=== PATIENT | male | born 1960 | race Hispanic/Latino ===

== ENCOUNTER 2019-08-04 11:55 | Outpatient (CLI) | payer OTHER ==
--- NOTE | 2019-08-04 12:38 | XRay Report ---
LEFT KNEE 2 VIEWS INDICATION / CLINICAL INFORMATION: Left knee pain. COMPARISON: None available. FINDINGS: BONES and JOINT(S): No acute fracture or subluxation. No significant arthritis. SOFT TISSUES: No significant abnormality. ADDITIONAL FINDINGS: None. IMPRESSION: 1. No acute findings. Signer Name: Yovany Dunne MD Signed: 08/04/2019 12:33 PM Workstation Name: [id number]
--- NOTE | 2019-08-04 12:39 | XRay Report ---
RIGHT SHOULDER 3 VIEWS INDICATION / CLINICAL INFORMATION: Right shoulder pain. COMPARISON: None available. FINDINGS: BONES and JOINT(S): No acute fracture or subluxation. No significant arthritis. SOFT TISSUES: No significant abnormality. ADDITIONAL FINDINGS: None. IMPRESSION: 1. No acute findings. Signer Name: Yovany Dunne MD Signed: 08/04/2019 12:35 PM Workstation Name: [id number]
== END 2019-08-04 11:56 | disposition home or self-care (01) ==
LOC: XRAY 11:55
DX: M25.511 Pain in right shoulder (principal); M25.562 Pain in left knee